=== PATIENT | male | born 1980 | race Caucasian/White ===

== ENCOUNTER 2016-07-29 11:30 | Emergency (ER) | payer OTHER ==
[2016-07-29] MEDS: Sodium Chloride 0.9% 1,000 ML PRIMARY IV ONE ×2 (11:35→13:35)
[2016-07-29] MEDS ORDERED: ceFAZolin Inj 1gm (Premix) 1 GM in Dextrose 1 BAG IV ONE (11:50)
[2016-07-29] MEDS ORDERED: NORMAL SALINE 10 ML SYRINGE FLUSH IVP PRN (11:50)
[2016-07-29] MEDS ORDERED: MORPHINE SULFATE 2 MG/1 ML IVP ONE (11:50)
[2016-07-29] MEDS ORDERED: DIPH,PERTUSS,TET(ADACEL) VAC/PF 0.5 ML (Tdap) IM ONE (11:50)
[2016-07-29] MEDS ORDERED: LET SOLUTION 40MG/0.5MG/5MG/ML - 3 ML TOPICAL ONE ×2 (11:51→12:07)
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
[2016-07-29 12:03] LABS: BLOOD UREA NITROGEN 16 mg/dL (7-22); CALCIUM 9.3 mg/dL (8.7-10.7); EST GLOMERULAR FILTRATION > 60 (>60 ml/min/1.73m(2)); SERUM ALBUMIN 4.4 g/dL (3.5-4.8)
[2016-07-29] MEDS ORDERED: DIAZEPAM 10 MG/2 ML (5 MG/1 ML) CARPUJECT IVP ONE (12:05)
[2016-07-29 12:06] LABS: LIPASE 37 IU/L (23-300)
[2016-07-29 12:07] LABS: BASOPHILS # (AUTO) 0.06 10*3/UL; BASOPHILS % (AUTO) 0.3 % (0-1); EOSINOPHILS # (AUTO) 0.06 10*3/UL; EOSINOPHILS % (AUTO) 0.3 % (0-8); HEMOGLOBIN 15.7 g/dL (14.0-18.0); LYMPHOCYTES # (AUTO) 1.15 10*3/uL; MEAN CORPUSCULAR HEMOGLOBIN 28.4 PG (27-31); MEAN CORPUSCULAR HGB CONC 34.1 g/dL (33-37); MEAN CORPUSCULAR VOLUME 83.2 FL (80-90); MEAN PLATELET VOLUME 8.9 FL (7.4-12.2); MONOCYTES # (AUTO) 1.28 10*3/UL (0.3-0.8); MONOCYTES % (AUTO) 5.6 % (5-15); NEUTROPHILS # (AUTO) 20.23 10*3/UL; NEUTROPHILS % (AUTO) 87.7 % (50-80); RED BLOOD COUNT 5.53 10^6/uL (4.70-6.10)
[2016-07-29] MEDS ORDERED: DIAZEPAM 10 MG/2 ML (5 MG/1 ML) CARPUJECT ONE (12:07)
[2016-07-29 12:09] LABS: PLATELET MORPHOLOGY COMMENT NORMAL MORPHOLOGY (NORM); RBC MORPHOLOGY COMMENT NORMAL MORPHOLOGY (NORM); WBC MORPHOLOGY COMMENT NORMAL MORPHOLOGY (NORM)
--- NOTE | 2016-07-29 12:21 | EKG ---
[address] [address] Measurements Intervals [place] Rate: 97 P: 67 TN: 172 QRS: 89 QRSD: 107 T: 60 QT: 345 QTc: 399 Interpretive Statements SINUS RHYTHM No previous ECG available for comparison Electronically Signed On 07-30-16 12:18:16 MDT by Moi Burns MD [email or web address]
[2016-07-29] MEDS ORDERED: MORPHINE SULFATE 4 MG/1 ML ONE ×2 (12:29→15:35)
[2016-07-29 12:53] VITALS: RESP 16; TEMP 97
[2016-07-29] MEDS ORDERED: ONDANSETRON 4 MG/2 ML VIAL ONE (13:14)
[2016-07-29] MEDS ORDERED: LIDOCAINE HCL 1%/EPI 1:100,000 - 20 ML VIAL ONE (13:26)
[2016-07-29] MEDS ORDERED: LIDOCAINE HCL 1%/EPI 1:100,000 - 20 ML VIAL SUBCUT ONE (13:28)
[2016-07-29] MEDS ORDERED: ONDANSETRON 4 MG/2 ML VIAL IVP ONE (13:28)
[2016-07-29 13:59] LABS: BILIRUBIN,URINE NEGATIVE (NEG); COLOR,URINE YELLOW; GLUCOSE, URINE (UA) NEGATIVE (NEG); NITRATE,URINE NEGATIVE (NEG); OCCULT BLOOD,URINE Trace-intact (NEG); PROTEIN,URINE 30 mg/dl (NEG); UROBILINOGEN,URINE 0.2 EU/dL (0.2)
[2016-07-29 14:01] LABS: CLARITY,URINE CLEAR (CLEAR)
[2016-07-29 14:02] LABS: URINE SAMPLE TYPE CLEAN CATCH URINE
[2016-07-29 14:14] LABS: SQUAMOUS EPITHELIAL CELL,UR RARE
[2016-07-29] MEDS ORDERED: MORPHINE SULFATE 4 MG/1 ML IVP ONE (15:39)
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
== END 2016-07-29 15:45 | disposition short-term general hospital (02) ==
LOC: ER 11:30
DX: S32.031A Stable burst fracture of third lumbar vertebra, initial encounter for closed fracture (principal); S01.412A Laceration without foreign body of left cheek and temporomandibular area, initial encounter; R07.81 Pleurodynia; W55.22XA Struck by cow, initial encounter; Y92.73 Farm field as the place of occurrence of the external cause; Y99.0 Civilian activity done for income or pay
CPT/HCPCS: 12013; 70450; 70486; 71010; 71260; 72125; 74177; 80053; 81001; 81003; 82150; 83690; 85025; 85610; 93005; 93010; 96361; 96365; 96375; 96376; 99285; J0690; J2270; J2405; J3360; J7030

== ENCOUNTER → 2016-08-07 | Outpatient (CLI) | payer OTHER ==
--- NOTE | 2016-08-07 11:53 | DI ---
PA /LATERAL CHEST X-RAY, 08/07/2016 10:07 AM : Clinical History: Pneumonia Previous Exam: July 29, 2016 There is no acute soft tissue or bony abnormality. Heart size is normal. Lungs are clear. Mediastinal structures are normal. There are no pulmonary nodules. IMPRESSION: Interval resolution of airspace disease seen on the prior exam.
== END ==
LOC: MOB RAD 10:10
PROVIDERS: ATTEND Nurse Practitioner Family
DX: J18.9 Pneumonia, unspecified organism (principal)
CPT/HCPCS: 71020